=== PATIENT | female | born 1940 | race Caucasian/White ===

== ENCOUNTER 2021-08-24 18:05 | Emergency (ER) | payer MEDICARE ==
[~2021-08-24] VITALS: Ht 154.9 cm; Wt 52.7 kg
[~2021-08-24 18:05] MED LIST: COUM1TAB18; HYDR25TA6; PERC5TAB8; POTA10CA2; [UNRECOGNIZED DRUG - OTHER]; [UNRECOGNIZED DRUG - OTHER]
[2021-08-24] MEDS ORDERED: LISI10TA24 PO (18:28)
[2021-08-24] MEDS ORDERED: COLE625TAB PO (18:28)
[2021-08-24 19:13] LABS: BASO % 0.6 % (0.0-1.0); EOS # 0.1 10^3/uL (0.0-0.5); EOS % 0.8 % (0.0-3.0); HEMATOCRIT 35.4 % (36.0-47.0); HEMOGLOBIN 11.6 g/dl (12.0-15.5); LYMPH # 1.5 10^3/uL (1.5-5.0); LYMPH % 20.2 % (24.0-44.0); MEAN CORPUSCULAR HEMOGLOBIN 30.2 pg (27.0-33.0); MEAN CORPUSCULAR HGB CONC 32.8 g/dl (32.0-36.5); MEAN CORPUSCULAR VOLUME 92.2 fl (80.0-96.0); MONO # 0.8 10^3/uL (0.0-0.8); MONO % 11.1 % (2.0-8.0); NEUTROPHILS # 4.8 10^3/uL (1.5-8.5); NEUTROPHILS % 67.2 % (36.0-66.0); PLATELET COUNT, AUTOMATED 224 10^3/uL (150-450); RED BLOOD COUNT 3.84 10^6/uL (4.00-5.40); WHITE BLOOD COUNT 7.2 10^3/uL (4.0-10.0)
[2021-08-24] MEDS ORDERED: NS 500 ML IV ONE (19:30)
[2021-08-24 19:43] LABS: ALBUMIN 3.1 GM/DL (3.2-5.2); ALT/SGPT 32 U/L (12-78); BILIRUBIN,DIRECT < 0.1 MG/DL (0.0-0.2); BILIRUBIN,TOTAL 0.2 MG/DL (0.2-1.0); FREE T4 0.93 NG/DL (0.76-1.46); TOTAL PROTEIN 6.3 GM/DL (6.4-8.2)
[2021-08-24 22:14] VITALS: O2SAT 96
[2021-08-24] MEDS ORDERED: CIPR250T26 PO (23:24)
[2021-08-24] MEDS ORDERED: CIPROFLOXACIN 250MG TAB PO ONE (23:25)
[2021-08-24 23:43] VITALS: BP 127/71
== END 2021-08-24 23:46 | disposition home or self-care (01) ==
LOC: M ED 18:05
DX: N39.0 Urinary tract infection, site not specified (principal); R53.1 Weakness; I10 Essential (primary) hypertension; K58.9 Irritable bowel syndrome, unspecified; E78.5 Hyperlipidemia, unspecified; Z79.811 Long term (current) use of aromatase inhibitors; Z79.01 Long term (current) use of anticoagulants; Z88.0 Allergy status to penicillin; Z91.048 Other nonmedicinal substance allergy status

== ENCOUNTER → 2021-09-05 | Outpatient (REF) | payer MEDICARE ==
[~2021-09-05] MED LIST changes: +CIPR250T26 PO; +COLE625TAB PO; +LISI10TA24 PO
== END ==
LOC: M LAB REF 08:33
PROVIDERS: ATTEND Internal Medicine
DX: R19.7 Diarrhea, unspecified (principal)

== ENCOUNTER → 2023-01-20 | Outpatient (REF) | payer MEDICARE ==
[~2023-01-20] MED LIST changes: +COLE625T17 PO; -COLE625TAB PO
== END ==
LOC: M LAB REF 16:27
PROVIDERS: ATTEND Internal Medicine
DX: M19.90 Unspecified osteoarthritis, unspecified site (principal)

== ENCOUNTER → 2023-01-21 | Outpatient (REF) | payer MEDICARE ==
[2023-01-21 14:51] LABS: APPEARANCE, URINE HAZY (CLEAR); BACTERIA, URINE AUTO 1+ (NEGATIVE); BILIRUBIN, URINE AUTO NEGATIVE (NEGATIVE); BLOOD, URINE BLOOD NEGATIVE (NEGATIVE); COLOR, URINE YELLOW (YELLOW); GLUCOSE, URINE (UA) AUTO NEGATIVE (NEGATIVE); KETONE, URINE AUTO NEGATIVE (NEGATIVE); LEUKOCYTE ESTERASE, URINE AUTO 2+ (NEGATIVE); MUCUS, URINE SMALL (NEGATIVE); NITRITE, URINE AUTO NEGATIVE (NEGATIVE); PROTEIN, URINE AUTO NEGATIVE (NEGATIVE); RBC, URINE AUTO 1 /HPF (0-3); SPECIFIC GRAVITY URINE AUTO 1.012 (1.002-1.035); SQUAMOUS EPITHELIAL CELL UR AU 1 /HPF (0-6); TRANSITIONAL EPITHELIAL AUTO <1 /HPF; UROBILINOGEN, URINE AUTO 0.2 mg/dL (0.0-2.0); WBC, URINE AUTO 6 /HPF (0-3)
== END ==
LOC: M LAB REF 12:18
PROVIDERS: ATTEND Internal Medicine
DX: N30.20 Other chronic cystitis without hematuria (principal)

== ENCOUNTER → 2023-07-05 | Outpatient (CLI) | payer MEDICARE | LOC: M RAD 10:34 | PROVIDERS: ATTEND Nurse Practitioner Family | DX: R22.0 Localized swelling, mass and lump, head (principal) ==

== ENCOUNTER → 2023-09-15 | Outpatient (CLI) | payer MEDICARE | LOC: M RAD 07:21 | PROVIDERS: ATTEND Physician Assistant Surgical | DX: R19.4 Change in bowel habit (principal); R19.7 Diarrhea, unspecified; R15.9 Full incontinence of feces ==

== ENCOUNTER → 2023-09-19 | Outpatient (REF) | payer MEDICARE | LOC: M LAB REF 10:01 | PROVIDERS: ATTEND Physician Assistant Surgical | DX: R19.7 Diarrhea, unspecified (principal); R19.4 Change in bowel habit; R15.9 Full incontinence of feces ==

== ENCOUNTER → 2023-09-22 | Outpatient (REF) | payer MEDICARE ==
[2023-09-23 15:23] LABS: IRON (FE) 62 UG/DL (50-170); PERCENT SATURATION 19.6 % (13.2-45.0); TOTAL IRON BINDING CAPACITY 317 UG/DL (250-425)
[2023-09-23 15:27] LABS: FERRITIN 105.7 NG/ML (7.3-270.7); FOLATE > 24.0 NG/ML (>5.4)
[2023-09-23 15:30] LABS: VITAMIN B12 LEVEL > 2000 PG/ML (211-911)
== END ==
LOC: M LAB REF 13:12
PROVIDERS: ATTEND Internal Medicine
DX: D50.9 Iron deficiency anemia, unspecified (principal)

== ENCOUNTER → 2023-10-12 | Outpatient (CLI) | payer MEDICARE | LOC: M PLAIMG 08:37 | PROVIDERS: ATTEND Internal Medicine | DX: G44.52 New daily persistent headache (NDPH) (principal) ==

== ENCOUNTER → 2023-12-10 | Outpatient (REF) | payer MEDICARE | LOC: M LAB REF 15:59 | PROVIDERS: ATTEND Internal Medicine | DX: R62.7 Adult failure to thrive (principal); G44.52 New daily persistent headache (NDPH); G31.84 Mild cognitive impairment of uncertain or unknown etiology ==

== ENCOUNTER → 2023-12-13 | Outpatient (REF) | payer MEDICARE | LOC: M LAB REF 11:08 | PROVIDERS: ATTEND Physician Assistant Surgical | DX: R19.7 Diarrhea, unspecified (principal) ==

== ENCOUNTER → 2024-02-09 | Outpatient (REF) | payer MEDICARE | LOC: M LAB REF 14:12 | PROVIDERS: ATTEND Internal Medicine Gastroenterology | DX: R19.7 Diarrhea, unspecified (principal) ==

== ENCOUNTER → 2024-06-12 | Outpatient (CLI) | payer MEDICARE ==
[~2024-06-12] MED LIST changes: +PROHANCE 279.3MG/ML 5ML VIAL ONE
== END ==
LOC: M PLAIMG 10:26
PROVIDERS: ATTEND Registered Nurse
DX: K86.89 Other specified diseases of pancreas (principal); R19.7 Diarrhea, unspecified; N28.1 Cyst of kidney, acquired; K86.2 Cyst of pancreas
CPT/HCPCS: 74183; A9576